=== PATIENT | male | born 1970 | race Caucasian/White ===

== ENCOUNTER 2016-11-07 11:23 | Inpatient (IN) | payer OTHER ==
[2016-11-07 12:48] VITALS: BMI 30.8
--- NOTE | 2016-11-07 14:39 | HP ---
COWS - Scale Resting Pulse: 0= NC 80 or Below Sweatin= Chills/Flushing Restless Observation: 3= Extraneous Movement Pupil Size: 0= Normal to Room Light Bone or Joint Aches: 4=Acute Joint/Muscle Pain Runny Nose/ Eye Tearin= Runny Nose/Eyes GI Upset > 30mins: 1= Stomach Cramp Tremor Observation: 1= Tremor [place], Not Seen Yawning Observation: 0= None Anxiety or Irritability: 2=Irritable/Anxious Goose Flesh Skin: 0=Smooth Skin COWS Score: 14 Admission [facility] Chief Complaint: DETOX TX FOR HEROIN DEPENDENCE Allergies/Adverse Reactions: Allergies Allergy/AdvReac Type Severity Reaction Status Date / Time No Known Allergies Allergy Verified 11/07/16 14:42 History of Present Illness: 46 Y/O H/M WITH A HX OF HEROIN,COCAINE AND MARIJUANA DEPENDENCE SEEKING DETOX TX. FIRST TIME HERE Exam Limitations: No Limitations - Ebola screening Have you traveled outside of the country in the last 21 days: No Have you had contact with anyone from an Ebola affected area: No Have you been sick,other than usual withdrawal symptoms: No Do you have a fever: No - Review of Systems Constitutional: Chills, Loss of Appetite, Night Sweats, Changes in sleep EENT: reports: Blurred Vision (HX ASTIGMATISMMISSING TEETH), Tearing, Nose Congestion Respiratory: reports: No Symptoms reported Cardiac: reports: Lightheadedness GI: reports: Constipated, Diarrhea, Nausea, Poor Appetite, Poor Fluid Intake, Vomiting, Abdominal cramping : reports: Frequency Musculoskeletal: reports: Back Pain, Joint Pain (BOTH KNEES), Muscle Pain, Other (HX TORN MENISCUS BOTH KNEES.) Integumentary: reports: Bruising ( IVD INJ. SITES ON BOTH UPPER/LOWER EXTREMITIES.) Neuro: reports: Headache, Tingling, Tremors, Unsteady Gait (TORN MENISCUS BOTH KNEES), Dizziness Endocrine: reports: No Symptoms Reported Hematology: reports: Anemia (HX) Psychiatric: reports: Orientated x3, Anxious Other Systems: Reviewed and Negative Patient History - Patient Medical History Hx Anemia: Yes (HX BUT NO CURRENT TX) Hx Asthma: No Hx Chronic Obstructive Pulmonary Disease (COPD): No Hx Hypertension: Yes (ON LASIX 20 MG DAILY) Hx Hypercholesterolemia: No HX Cerebrovascular Accident: No Hx Seizures: Yes (RELATED TO WITHDRAWAL SX;LAST IN 2014) Hx Diabetes: No Hx Gastrointestinal Disorders: No Hx Genitourinary Disorders: No Hx Sexually Transmitted Disorders: No Hx Renal Disease (ESRD): No Hx Thyroid Disease: No Hx Human Immunodeficiency Virus (HIV): No (NEGATIVE HX) Hx Hepatitis C: Yes (TREATED BUT RE-INFECTED.) Hx Depression: Yes (WAS ON MED) Hx Suicide Attempt: Yes (CLOSE TO JUMPING OFF [employer](1991) BUT CHANGED MIND; DENIES CURRENT IDEATIONS.) Hx Bipolar Disorder: No Hx Schizophrenia: No Other Medical History: HX FX RIGHT ANKLE IN 6TH GRADE - Patient Surgical History Past Surgical History: Yes Hx Neurologic Surgery: No Hx Cataract Extraction: No Hx Cardiac Surgery: No Hx Lung Surgery: No Hx Breast Surgery: No Hx Breast Biopsy: No Hx Abdominal Surgery: Yes (SX FOR INTESTINAL RESECTION DUE TO BLOCKAGE 1988) Hx Appendectomy: No Hx Cholecystectomy: No Hx Genitourinary Surgery: No Hx Orthopedic Surgery: No Other Surgical History: CYST REMOVAL ON RIGHT NECK IN 1989 Anesthesia Reaction: No - PPD History Previous Implant?: Yes Documented Results: Negative w/o proof Implanted On Prior [facility] Admission?: No PPD to be Administered?: Yes - Reproductive History Patient is a Female of Child Bearing Age (11 -55 yrs old): No (MALE) Patient : (N/A) - Smoking Cessation Smoking history: Current every day smoker Have you smoked in the past 12 months: Yes Aproximately how many cigarettes per day: 20 Hx Chewing Tobacco Use: No Initiated information on smoking cessation: Yes 'Breaking Loose' booklet given: 11/07/16 - Substance & Tx. History Hx Alcohol Use: Yes ("OCASSIONAL BUT NOT A PROBLEM") Hx Substance Use: Yes (HEROIN/COCAINE/MARIJUANA) Substance Use Type: Cocaine, Heroin, Marijuana Hx Substance Use Treatment: Yes (LAST TX AT [facility]. STOPPED 3 1/2 MONTHS AGO.) - Substances Abused Heroin Route: Injection Frequency: Daily Amount used: 20 -30 BAGS Age of first use: 26 Date of Last Use: 11/07/16 Cocaine Route: Inhalation Frequency: 1-2 times per week Amount used: $20-40 Age of first use: 14 Date of Last Use: 11/06/16 Marijuana/Hashish Route: Smoking Frequency: 1-2 times per week Amount used: 2 BLUNTS Age of first use: 14 Date of Last Use: 11/06/16 Family Disease History - Family Disease History Family Disease History: CA: Grandparent (BONE CANCER-DESEASED), Other: Mother ( HTN) Admission Physical Exam [facility] - Vital Signs Vital Signs: Vital Signs - 24 hr 11/07/16 11/07/16 12:25 12:55 Temperature 97.4 F L 97.4 F L Pulse Rate 74 74 Respiratory 20 20 Rate Blood Pressure 105/66 105/66 - Physical General Appearance: Yes: Moderate Distress, Irritable, Anxious HEENTM: Yes: EOMI, Normocephalic, GALLITO, Pharynx Normal, Nasal Congestion Respiratory: Yes: Chest Non-Tender, Lungs Clear, Normal Breath Sounds, No Respiratory Distress Neck: Yes: No masses,lesions,Nodules, Supple, Trachea in good position Breast: Yes: Breast Exam Deferred Cardiology: Yes: Regular Rhythm, Regular Rate, S1, S2 Abdominal: Yes: Normal Bowel Sounds, Non Tender, Soft Genitourinary: Yes: Other (N/C) Musculoskeletal: Yes: full range of Motion, Gait Steady Extremities: Yes: Normal Range of Motion, Non-Tender Neurological: Yes: funeral service manager II-XII NML intact, Fully Oriented, Alert, Motor Strength 5/5 Integumentary: Yes: Dry, Warm, Track Dhillon (MULTIPLE IVD INJ. SITES ON BOTH UPPER EXTREMITIES AND LEGS. CURRENTLY ON BACTRIM DS TWICE DAILY FOR CELLULITIS OF LEFT ELBOW/ABCESS X 7 DAYS. TWO MORE DAYS OF THERAPY.) Lymphatic: Yes: Within Normal Limits - Diagnostic (1) Opioid dependence with withdrawal Current Visit: Yes Status: Acute (2) Cocaine dependence, uncomplicated Current Visit: Yes Status: Acute (3) Cannabis dependence, uncomplicated Current Visit: Yes Status: Acute (4) Cellulitis of left elbow Current Visit: Yes Status: Acute Comment: CURRENTLY ON BACTRIM TREATMENT. Cleared for Admission [facility] - Detox or Rehab [facility] Level of Care: Medically Managed Detox Regimen/Protocol: Methadone [facility] Breath Alcohol Content Breath Alcohol Content: 0 Urine Drug Screen - Results Drug Screen Negative: No Urine Drug Screen Results: THC-Marijuana, RUDOLPH-Cocaine, OPI-Opiates, MTD- Methadone
[2016-11-07] MEDS ORDERED: NICOTINE POLACRILEX 4 MG GUM BC PRN (16:09)
[2016-11-07] MEDS ORDERED: MAGNESIUM CITRATE 300 ML BOTTLE PO PRN (16:09)
[2016-11-07] MEDS ORDERED: P-EPHED 60MG/TRIPROLIDI 2.5MG TABLET PO PRN (16:09)
[2016-11-07] MEDS ORDERED: hydrOXYzine PAMOATE 25 MG CAPSULE (FP) PO PRN (16:09)
[2016-11-07] MEDS ORDERED: ACETAMINOPHEN 325 MG TABLET (FP) PO PRN (16:09)
[2016-11-07] MEDS ORDERED: MAGNESIUM HYDROX 2400MG/30ML ORAL SUSPENSION 30 ML CUP PO PRN (16:09)
[2016-11-07] MEDS ORDERED: MENTHOL/PHENOL 1 EACH UD MM PRN (16:09)
[2016-11-07] MEDS ORDERED: guaiFENesin/D-METHORPHAN HB 10 ML UNIT-DOSE CUPS PO PRN (16:09)
[2016-11-07] MEDS ORDERED: MAG HYDROX/AL HYDROX/SIMETH 30 ML UNIT-DOSE CUP PO PRN (16:09)
[2016-11-07] MEDS ORDERED: diphenhydrAMINE HCL 50 MG CAPSULE PO PRN (16:09)
[2016-11-07] MEDS ORDERED: LOPERAMIDE HCL 2 MG CAPSULE PO PRN (16:09)
[2016-11-07] MEDS ORDERED: METHADONE HCL 10 MG TABLET (FOR DETOX USE ONLY) PO ONE ×2 (18:00→23:00)
[2016-11-07] MEDS: diazePAM 5 MG TABLET PO PRN ×2 (18:31→23:08)
[2016-11-07] MEDS: NICOTINE 21 MG/24 HOURS TOPICAL PATCH TD SCH (18:35)
[2016-11-07 21:13] LABS: URINE APPEARANCE CLOUDY; URINE BILIRUBIN NEGATIVE (NEGATIVE); URINE BLOOD NEGATIVE (NEGATIVE); URINE COLOR DKYELLOW; URINE GLUCOSE (UA) NEGATIVE (NEGATIVE); URINE KETONE NEGATIVE (NEGATIVE); URINE LEUK ESTERASE NEGATIVE (NEGATIVE); URINE NITRITE NEGATIVE (NEGATIVE); URINE PROTEIN NEGATIVE (NEGATIVE)
[2016-11-07] MEDS: THIAMINE HCL 100 MG TABLET (FP) PO SCH (23:02)
[2016-11-08] MEDS ORDERED: METHADONE HCL 10 MG TABLET (FOR DETOX USE ONLY) PO ONE (10:00)
[2016-11-08 10:20] LABS: MCH 28.1 pg (25.7-33.7); MCHC 32.9 g/dl (32.0-35.9); MEAN CELL VOLUME 85.4 fl (80-96); MEAN PLT VOLUME 8.4 fl (7.5-11.1); PLATELET COUNT 361 K/MM3 (134-434); WHITE BLOOD COUNT 6.8 K/mm3 (4.0-10.0)
[2016-11-08 10:21] LABS: ALBUMIN 3.5 g/dl (3.4-5.0); ALK PHOS 79 U/L (45-117); ANION GAP 10 (8-16); BILIRUBIN,TOTAL 0.4 mg/dL (0.2-1.0); CALCIUM 9.3 mg/dL (8.5-10.1); CO2 26 mmol/L (21-32); CREATININE 1.1 mg/dL (0.7-1.3); GLUCOSE,RANDOM 88 mg/dL (74-106); SGOT/AST 24 U/L (15-37); SGPT/ALT 49 U/L (12-78); TOT PROT 8.3 g/dl (6.4-8.2)
--- NOTE | 2016-11-08 10:33 | PN ---
S COWS - Scale Resting Pulse: 0= DE 80 or Below Sweatin= Chills/Flushing Restless Observation: 3= Extraneous Movement Pupil Size: 1= Pupils >than Normal Bone or Joint Aches: 2= Severe Diffuse Aches Runny Nose/ Eye Tearin= Nasal Congestion GI Upset > 30mins: 3= Vomiting/Diarrhea Tremor Observation of Outstretched Hands: 2= Slight Tremor Visible Yawning Observation: 1= 1-2x During Session Anxiety or Irritability: 2=Irritable/Anxious Goose Flesh Skin: 0=Smooth Skin COWS Score: 16 S Progress Note (SOAP) Subjective: ALERT,IRRITABLE,ANXIOUS,PAIN IN BODY,JOINT AND BACK,TREMOR,TREMOR Objective: 11/08/16 10:30 Vital Signs Temperature 97.2 F L 11/08/16 10:00 Pulse Rate 76 11/08/16 10:00 Respiratory Rate 20 11/08/16 10:00 Blood Pressure 140/67 11/08/16 10:00 O2 Sat by Pulse Oximetry (%) EKG SINUS BRADYCARDIA WITH 1ST DEGREE BLOCK RATE 57/MIN NO CHEST PAIN,NO SOB,NO DIZZINESS Laboratory 11/07/16 11/08/16 20:59 05:45 Sodium 136 mmol/L mmol/L (136-145) Potassium 4.6 mmol/L mmol/L (3.5-5.1) Chloride 100 mmol/L mmol/L (98-107) Carbon Dioxide 26 mmol/L mmol/L (21-32) Anion Gap 10 (8-16) BUN 14 mg/dL mg/dL (7-18) Creatinine 1.1 mg/dL mg/dL (0.7-1.3) Creat Clearance w eGFR > 60 (>60) Random Glucose 88 mg/dL mg/dL (74-106) Calcium 9.3 mg/dL mg/dL (8.5-10.1) Total Bilirubin 0.4 mg/dL mg/dL (0.2-1.0) AST 24 U/L U/L (15-37) ALT 49 U/L U/L (12-78) Alkaline Phosphatase 79 U/L U/L (45-117) Total Protein 8.3 g/dl H g/dl (6.4-8.2) Albumin 3.5 g/dl g/dl (3.4-5.0) Urine Color Dkyellow Urine Appearance Cloudy Urine pH 5.0 (5.0-8.0) Urine Protein Negative (NEGATIVE) Urine Glucose (UA) Negative (NEGATIVE) Urine Ketones Negative (NEGATIVE) Urine Blood Negative (NEGATIVE) Urine Nitrite Negative (NEGATIVE) Urine Bilirubin Negative (NEGATIVE) Urine Urobilinogen 2.0 mg/dL mg/dL (0.2-1.0) Ur Leukocyte Esterase Negative (NEGATIVE) LABS PENDING Assessment: 11/08/16 10:33 WITHDRAWAL SYMPTOM Plan: CONTINUE DETOX
[2016-11-08] MEDS: PRENATAL VITAMINS W/ FOLIC ACID TABLET (FP) PO SCH (10:48)
[2016-11-08] MEDS: NICOTINE 21 MG/24 HOURS TOPICAL PATCH TD SCH (10:48)
[2016-11-08] MEDS: diazePAM 5 MG TABLET PO PRN ×3 (10:48→22:10)
[2016-11-08] MEDS: PATIENT'S OWN MEDICATION (NON-FORMULARY) (Sulfamethoxazole/Trimethoprim [Bactrim Ds Tablet PO SCH ×3 (10:49→22:11)
[2016-11-08 11:26] LABS: HIV 1 & 2 AB NEGATIVE; HIV 1 AGp24 NEGATIVE
[2016-11-08 12:05] LABS: SICKLE CELL SCREEN NEGATIVE (NEGATIVE)
[2016-11-08] MEDS: BACITRACIN 0.9 GM PACKET TP SCH ×2 (12:21→22:10)
--- NOTE | 2016-11-08 12:39 | CONSULT ---
[facility] Psychiatric Consult - Data Date of interview: 11/08/16 Admission source: [facility] Identifying data: First admission to [facility] for this 46 y/o male seeking detox treatment on for heroin,cocaine,marihuana and xanax dependence.Patient is single,a father of one,domiciled and employed. Substance Abuse History: Discussed with patient in this session.Mr Root confirms this [facility] report as an accurate account of his pattern of substance use. Smoking Cessation. Smoking history: Current every day smoker. Have you smoked in the past 12 months: Yes. Aproximately how many cigarettes per day: 20. Hx Chewing Tobacco Use: No. Initiated information on smoking cessation: Yes. 'Breaking Loose' booklet given: 11/07/16. - Substance & Tx. History. Hx Alcohol Use: Yes ("OCASSIONAL BUT NOT A PROBLEM"). Hx Substance Use: Yes ( HEROIN/COCAINE/MARIJUANA). Substance Use Type: Cocaine, Heroin, Marijuana. Hx Substance Use Treatment: Yes (LAST TX AT [facility]. STOPPED 3 1/2 MONTHS AGO.). - Substances Abused. Heroin. Route: Injection. Frequency: Daily. Amount used: 20 -30 BAGS. Age of first use: 26. Date of Last Use: 11/07/16. * * Cocaine. Route: Inhalation. Frequency: 1-2 times per week. Amount used: $20 -40. Age of first use: 14. Date of Last Use: 11/06/16. Marijuana/Hashish. Route: Smoking. Frequency: 1-2 times per week. Amount used: 2 BLUNTS. Age of first use: 14. Date of Last Use: 11/06/16 Medical History: Significant for a cohort of co-morbidities : liver cirrhosis ( self-report),hepatitis C,cellulitis of left arm,arthritis of both knees (torn meniscus in both limbs),history of astigmatism (blurred vision),hypertension, anemia,withdrawal-related seizures and a history of abdominal surgery ( intestinal obstruction in 1988). 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 Physical/Sexual Abuse/Trauma History: Patient denies. Additional Comment: Urine Drug Screen Results: THC-Marijuana, RUDOLPH-Cocaine, OPI- Opiates, MTD-Methadone.Noted. Mental Status Exam - Mental Status Exam Alert and Oriented to: Time, Place, Person Cognitive Function: Good Patient Appearance: Well Groomed Mood: Hopeful, Euthymic Affect: Appropriate, Normal Range Patient Behavior: Fatigued, Appropriate, Cooperative Speech Pattern: Clear Voice Loudness: Normal Thought Process: Goal Oriented Thought Disorder: Not Present Hallucinations: Denies Suicidal Ideation: Denies Homicidal Ideation: Denies Insight/Judgement: Poor Sleep: Poorly, Difficulty falling asleep Appetite: Good Muscle strength/Tone: Normal Gait/Station: Normal Psychiatric Findings - Problem List (Levasy 1, 2,3) (1) Opioid dependence with withdrawal Current Visit: Yes Status: Acute (2) Cocaine dependence, uncomplicated Current Visit: Yes Status: Acute (3) Cannabis dependence, uncomplicated Current Visit: Yes Status: Acute (4) Nicotine dependence Current Visit: Yes Status: Acute (5) Substance induced mood disorder Current Visit: Yes Status: Acute (6) Cellulitis of left elbow Current Visit: Yes Status: Acute Comment: CURRENTLY ON BACTRIM TREATMENT. (7) Insomnia Current Visit: Yes Status: Acute - Initial Treatment Plan Initial Treatment Plan: Psychoeducation.Detoxification.Trazodone 100 mg po hs.Patient is made aware of the potential for priapism and he is advised to stop the medication / summon medical assistance if occurrence of erectile abnormalities (painful or prolonged erection).Mr Root gave his consent (verbal) to this chart writer for adherence to this careplan Observation.
[2016-11-08] MEDS: IBUPROFEN 400 MG TABLET (FP) PO PRN (17:25)
[2016-11-08] MEDS: THIAMINE HCL 100 MG TABLET (FP) PO SCH (22:10)
[2016-11-08] MEDS: ZOLPIDEM TARTRATE 10 MG TABLET (PARK CARE ONLY) PO PRN (22:14)
[2016-11-09] MEDS ORDERED: ONDANSETRON *ODT* 4 MG TABLET SL PRN (09:23)
[2016-11-09] MEDS: PRENATAL VITAMINS W/ FOLIC ACID TABLET (FP) PO SCH (09:40)
[2016-11-09] MEDS: diazePAM 5 MG TABLET PO PRN ×3 (09:40→20:20)
[2016-11-09] MEDS ORDERED: METHADONE HCL 5 MG TABLET (FOR DETOX USE ONLY) PO ONE (10:00)
--- NOTE | 2016-11-09 10:35 | PN ---
[facility] COWS - Scale Resting Pulse: 1= [place] 81-100 Sweatin= Chills/Flushing Restless Observation: 3= Extraneous Movement Pupil Size: 1= Pupils >than Normal Bone or Joint Aches: 2= Severe Diffuse Aches Runny Nose/ Eye Tearin= Nasal Congestion GI Upset > 30mins: 3= Vomiting/Diarrhea Tremor Observation of Outstretched Hands: 2= Slight Tremor Visible Yawning Observation: 1= 1-2x During Session Anxiety or Irritability: 2=Irritable/Anxious Goose Flesh Skin: 0=Smooth Skin COWS Score: 17 [facility] Progress Note (SOAP) Subjective: ALERT,IRRITABLE,ANXIOUS,INTERRUPTED SLEEP,TREMOR,PAIN IN THE BODY AND BACK Objective: 11/09/16 10:34 Vital Signs Temperature 96.3 F L 11/09/16 06:16 Pulse Rate 62 11/09/16 06:16 Respiratory Rate 18 11/09/16 06:16 Blood Pressure 96/60 11/09/16 06:16 O2 Sat by Pulse Oximetry (%) Assessment: 11/09/16 10:34 WITHDRAWAL SYMPTOM Plan: CONTINUE DETOX,CONTINUE BATRIM DS 1 TAB PO BID
[2016-11-09] MEDS: NICOTINE 21 MG/24 HOURS TOPICAL PATCH TD SCH (11:42)
[2016-11-09] MEDS: BACITRACIN 0.9 GM PACKET TP SCH ×2 (11:42→22:18)
[2016-11-09] MEDS: PATIENT'S OWN MEDICATION (NON-FORMULARY) (Sulfamethoxazole/Trimethoprim [Bactrim Ds Tablet PO SCH (11:42)
[2016-11-09] MEDS: IBUPROFEN 400 MG TABLET (FP) PO PRN (17:01)
--- NOTE | 2016-11-09 20:03 | EKG ---
Test Reason : Blood Pressure : / mmHG Vent. Rate : 057 BPM Atrial Rate : 057 BPM P-R Int : 224 ms QRS Dur : 078 ms QT Int : 432 ms P-R-T Axes : 038 028 013 degrees QTc Int : 420 ms SINUS BRADYCARDIA WITH 1ST DEGREE A-V BLOCK LOW VOLTAGE QRS BORDERLINE ECG NO PREVIOUS ECGS AVAILABLE Confirmed by MAGDA MIDDLETON MD ([id number]) on 11/09/2016 8:02:36 PM Referred By: Confirmed By:MAGDA MIDDLETON MD
[2016-11-09] MEDS ORDERED: CYCLOBENZAPRINE HCL 10 MG TABLET (FP) PO SCH (22:00)
[2016-11-09] MEDS: cloNIDine HCL 0.1 MG TABLET PO SCH (22:19)
[2016-11-09] MEDS: THIAMINE HCL 100 MG TABLET (FP) PO SCH (22:19)
[2016-11-09] MEDS: SULFAMETHOXAZOLE/TRIMETHOPRIM 800MG/160MG D.S. TABLET PO SCH (22:19)
[2016-11-09] MEDS: ZOLPIDEM TARTRATE 10 MG TABLET (PARK CARE ONLY) PO PRN (22:19)
[2016-11-10] MEDS: diazePAM 5 MG TABLET PO PRN ×2 (00:44→09:33)
[2016-11-10] MEDS ORDERED: TRIMETHOBENZAMIDE HCL 300 MG CAPSULE PO PRN (09:09)
--- NOTE | 2016-11-10 09:26 | PN ---
S Progress Note (SOAP) Subjective: ALERT,IRRITABLE,ANXIOUS,INTERRUPTED SLEEP,TREMOR,PAIN IN THE BODY AND BACK Objective: 11/10/16 09:25 Vital Signs Temperature 97.8 F 11/10/16 06:17 Pulse Rate 66 11/10/16 06:17 Respiratory Rate 18 11/10/16 06:17 Blood Pressure 125/81 11/10/16 06:17 O2 Sat by Pulse Oximetry (%) Assessment: 11/10/16 09:25 WITHDRAWAL SYMPTOM Plan: CONTINUE DETOX
[2016-11-10] MEDS: PRENATAL VITAMINS W/ FOLIC ACID TABLET (FP) PO SCH (09:33)
[2016-11-10] MEDS: cloNIDine HCL 0.1 MG TABLET PO SCH (09:33)
[2016-11-10] MEDS: BACITRACIN 0.9 GM PACKET TP SCH (09:33)
[2016-11-10] MEDS: SULFAMETHOXAZOLE/TRIMETHOPRIM 800MG/160MG D.S. TABLET PO SCH (09:33)
--- NOTE | 2016-11-10 09:36 | PN ---
S Progress Note Note: PATIENT DID NOT WANT TO COMPLETE TREATMENT,SEEN BY COUNSELOR,SIGNED RELEASE AMA
--- NOTE | 2016-11-10 09:39 | DS ---
[facility] Detox Discharge Summary Admission Date: 11/07/16 Discharge Date: 11/10/16 - History Present History: Cannabis Dependence, Cocaine Dependence, Opioid Dependence Additional Comments: PATIENT DID NOT WANT TO COMPLETE TREATMENT,SEEN BY COUNSELOR,SIGNED RELEASE AMA, Pertinent Past History: CELLULITIS OF LEFT ELBOW - Physical Exam Results Vital Signs: Vital Signs Temperature 97.8 F 11/10/16 06:17 Pulse Rate 66 11/10/16 06:17 Respiratory Rate 18 11/10/16 06:17 Blood Pressure 125/81 11/10/16 06:17 O2 Sat by Pulse Oximetry (%) Pertinent Admission Physical Exam Findings: WITHDRAWAL SYMPTOM - Medication Discharge Medications: Ambulatory Orders Furosemide [Lasix -] 20 mg PO DAILY 11/07/16 Ibuprofen [Motrin -] 600 mg PO Q6H PRN 11/07/16 Sulfamethoxazole/Trimethoprim [Bactrim Ds Tablet] 2 each PO BID 11/07/16 - Diagnosis (1) Opioid dependence with withdrawal Current Visit: Yes Status: Acute (2) Cannabis dependence, uncomplicated Current Visit: Yes Status: Acute (3) Cellulitis of left elbow Current Visit: Yes Status: Acute (4) Cocaine dependence, uncomplicated Current Visit: Yes Status: Acute - AMA Did Patient Leave Against Medical Advice: Yes
[2016-11-10] MEDS ORDERED: METHADONE HCL 5 MG TABLET (FOR DETOX USE ONLY) PO ONE (10:00)
[2016-11-10 10:22] VITALS: BP 139/97; PULSE 86; TEMP 98.2
[2016-11-11] MEDS ORDERED: METHADONE HCL 10 MG TABLET (FOR DETOX USE ONLY) PO ONE (10:00)
[2016-11-12] MEDS ORDERED: METHADONE HCL 5 MG TABLET (FOR DETOX USE ONLY) PO ONE (06:00)
== END 2016-11-10 09:40 | disposition left against medical advice (07) | DRG 770 ==
LOC: YASAS 11:23 → Y6N 17:17
PROVIDERS: ADMIT Internal Medicine; ATTEND Internal Medicine
PROC: HZ2ZZZZ Detoxification Services for Substance Abuse Treatment (ICD-10-PCS; principal; 2016-11-07)
DX: F11.23 Opioid dependence with withdrawal (principal); F14.20 Cocaine dependence, uncomplicated; F12.20 Cannabis dependence, uncomplicated; F17.210 Nicotine dependence, cigarettes, uncomplicated; F19.24 Other psychoactive substance dependence with psychoactive substance-induced mood disorder; G47.00 Insomnia, unspecified; L03.114 Cellulitis of left upper limb; R00.1 Bradycardia, unspecified; I44.0 Atrioventricular block, first degree; I10 Essential (primary) hypertension; B18.2 Chronic viral hepatitis C; Z86.69 Personal history of other diseases of the nervous system and sense organs; Z91.5 Personal history of self-harm
CPT/HCPCS: 36415; 80053; 81003; 85027; 85660; 86593; 87389; 93005; 93010